=== PATIENT | female | born 1945 | race Caucasian/White ===

== ENCOUNTER 2024-06-23 15:07 | Emergency (ER) | payer MEDICARE, SELFPAY ==
[2024-06-23 15:07] VITALS: BMI 21.7
[2024-06-23 15:15] VITALS: BP 135/84
[2024-06-23 15:42] LABS: % Basophils 0.4 % (0-2); % Eosinophils 1.3 % (0-6); % Immature Granulocytes 0.4 % (0-0.5); % Lymphocytes 40.1 % (20.5-51.1); % Monocytes 8.8 % (1.7-9.3); Absolute Eosinophils 0.1 10^3/uL (0-0.7); Absolute Lymphocytes 1.9 10^3/uL (1.2-3.4); Absolute Monocytes 0.4 10^3/uL (0.1-0.6); Absolute Neutrophils 2.3 10^3/uL (1.4-6.5); Hemoglobin 13.3 g/dL (12.0-16.0); Mean Corp Hgb Conc. 34.1 g/dL (33.0-37.0); Mean Corpuscular Hgb 31.8 pg (27.0-31.0); Mean Corpuscular Volume 93.3 fL (81.0-99.0); Nucleated Red Blood Cells % 0 %; Platelet Count 188 10^3/uL (130-400); Red Blood Cell Count 4.18 10^6/uL (4.20-5.40); Red Cell Dist. Width 13.6 % (11.5-14.5); White Blood Cell Count 4.6 10^3/uL (4.8-10.8)
[2024-06-23 15:52] LABS: INR 1.96; PT 22.5 Sec (11.4-14.6)
[2024-06-23 16:30] LABS: Blood Urea Nitrogen 10 mg/dl (7-17); Calcium 8.5 mg/dl (8.4-10.2); Carbon Dioxide 29 mmol/L (22-30); Chloride 100 mmol/L (98-107); Estimated Creatinine Clearance 76 ml/min; Glucose 95 mg/dl (70-99); Sodium 135 mmol/L (135-145); eGFR > 60.00
[2024-06-23 16:35] LABS: NT-proBNP 857 pg/ml; Troponin I 0.014 ng/ml
--- NOTE | 2024-06-23 17:24 | ED.GENMED ---
History of Present Illness
General
Chief Complaint: Breathing Problem
Source: patient
Exam Limitations: none
Time Seen by Provider: 06/23/24 17:11
Nursing documentation reviewed up to this point in time: agreed with
History of Present Illness
History of Present Illness:
The patient is a 78-year-old female who reports cough, congestion, and shortness of breath for about 4 to 5 days. Patient was evaluated urgent care yesterday and tested positive for flu. She reports that she received a phone call from urgent care
encouraging her to go to the emergency department to further evaluate her aorta. Patient reports she has a known aortic aneurysm. When she explained this to urgent care, they reported that she should still be sent to the ED for a CT. Patient
reports she is able to keep fluids down and hydrate. She recently flew in from [facility] to visit her daughter. Patient denies chest pain and back pain. She denies abdominal pain.
Past History
Past History
ED Past Medical History: HTN, Hypercholesterolemia and Other (PE, valve disorder, chronic bronchitis)
ED Past Surgical History: Other
Social History
Tobacco: Other
Alcohol: Other
Drug: None
Personal: Other
Living: with family
Employment: Other
Family History
Family History: Other
Review of Systems
Review of Systems
Allergies reviewed?: Yes
All Other Systems: ROS reviewed and negative except as documented in HPI and ROS
Constitutional: Reports fatigue
EENT: Reports other (Runny nose, sinus congestion)
Respiratory: Reports cough and trouble breathing
Cardiac: Reports no symptoms
ABD/GI: Reports no symptoms
: Reports no symptoms
Musculoskeletal: Reports no symptoms
Skin: Reports no symptoms
Neurological: Reports no symptoms
Endocrine: Reports no symptoms
Hematologic/Lymphatic: Reports no symptoms
Psychiatric: Reports no symptoms
Phy Exam
Physical Exam
Physical Exam:
Physical Exam
General: no apparent distress, not acutely ill
Neck: supple. no meningeal signs. normal psoterior pharynx
Heart: s1/s2 regular rate and rhythm, murmur present.
Lungs: no acute respiratory distress. Mild rhonchi. No crackles. Patient speaks in full sentences without respiratory distress
Abdomen: normal bowel sounds. not tender. no CVAT
Neuro: alert and oriented. no focal neurological deficits
Skin: no rash
Psychiatric: well kept. interactive and cooperative
Extremities: no edema. no calf tenderness. negative homans. good distal pulses
Scores
Heart Failure Risk
Heart Failure Risk Score: Not Applicable
Course
Orders/Labs/Results
Orders:
Orders
06/23/24 15:08
Electrocardiogram (*1) Urgent
Reason for Study: Shortness of Breath
06/23/24 15:09
EKG- Treatment ONCE
CR Chest - 2 Views Urgent
Comment:
Reason For Exam: respiratory distress
06/23/24 15:27
Complete Blood Count/With Diff Urgent
Prothrombin Time Urgent
06/23/24 15:51
Basic Metabolic Panel Urgent
NT-proBNP Urgent
Troponin I Urgent
06/23/24 17:23
CT Chest/abd/pelvis Angio W/wo Urgent
Comment:
Reason For Exam: SOB
06/23/24 18:02
Troponin I Urgent
Abnormal Lab Results
06/23/24
15:27
WBC 4.6 L 10^3/uL
(4.8-10.8)
RBC 4.18 L 10^6/uL
(4.20-5.40)
MCH 31.8 H pg
(27.0-31.0)
PT 22.5 H Sec
(11.4-14.6)
06/23/24 15:27
06/23/24 15:51
Vital Signs
Initial and Last Documented VS:
Initial Vital Signs
Temp Pulse Resp BP Pulse Ox
98.1 F 61 18 135/84 98
06/23/24 15:15 06/23/24 15:15 06/23/24 15:15 06/23/24 15:15 06/23/24 15:15
Last Documented Vital Signs
Temp Pulse Resp BP Pulse Ox
98.1 F 62 18 151/85 91
06/23/24 15:15 06/23/24 20:15 06/23/24 20:15 06/23/24 20:01 06/23/24 20:15
MDM/Problems Addressed
Differential Diagnosis Includes:
Lobar pneumonia, viral pneumonia, PE, CHF, acute coronary syndrome
MDM/Problems Addressed:
Patient presents with acute shortness of breath and cough
Chronic conditions affecting care:
Given patient has history of PE, she can possibly be an increased risk of PE. Given patient has valvular heart disease, she is at increased risk of CHF
Acute Exacerbation and/or Progression of Chronic Illness:
Patient is mildly hypertensive, however, clinically does not appear to be in CHF
*Radiology
Radiology exam reviewed: preliminary read by ED provider (Chest x-ray reviewed by me. No acute disease) and radiology read reviewed
*Pulse Oximetry
Patient hypoxic: no
*EKG
Interpreted by ED Provider?: Yes
Interpretation: abnormal
Comparison EKG: no comparison EKG present
Rate: normal
Rhythm: sinus
[place]: normal axis and left axis deviation
Interval: normal interval
QRS Pattern: right bundle branch block and left vent hypertrophy
Ischemia: non-specific ST changes
*[employer] Interpretation
Rate: normal
Interpretation: normal
Rhythm: sinus
*Critical Care Note
Total Time (30-74mins, 75-104mins- exclusive of procedures): Not Applicable
Data Reviewed
Source: patient and family
Patient Management
Social determinants of health affecting care: Living situation and Strong social support
Escalation/DeEscalation of care consider admission/obs:
Patient is breathing comfortably with a normal pulse ox. CT shows no sign of aortic abnormality, PE or pneumonia. Given patient's ongoing cough productive of mucus that she reports is just getting worse for at least 5 to 6 days, with her history
of chronic lung disease, decision to treat her with antibiotics for acute bronchitis
ED Attending Note
-
Portions of this chart may have been created with voice recognition software.� Occasional wrong word or��sound alike� substitutions may have occurred due to the inherent limitations of voice recognition software.
Discharge Plan
Departure
Patient Disposition: Home (Routine Discharge)
Date of Disposition: 06/23/24
Time of Disposition: 22:00
Patient with high blood pressure during this ER visit?: Yes
Condition: Good
Covid-19: Not Applicable
Discharge Problem:
Acute bronchitis
Instructions: Acute Bronchitis, Adult (DC)
Prescriptions:
New
doxycycline hyclate 100 mg capsule
100 mg PO BID Qty: 13 0RF
Referrals:
RAMAN YIN [Other]
Interventions
Interventions:
*Risk Screen - Suicide Last Done: 06/23/24 15:15
*General Assessment Last Done: 06/23/24 21:26
*Neglect/Abuse Screening Last Done: 06/23/24 15:15
ED- Fall Risk Assessment Last Done: 06/23/24 15:15
*ED COVID-19 Vaccine History Last Done: 06/23/24 21:26
ED- Cardiac Assessment Last Done: 06/23/24 18:00
ED- Pulmonary Assessment Last Done: 06/23/24 18:00
Discharge Date and Time
Print Language: PALAUAN
[2024-06-23 19:00] LABS: Troponin I 0.017 ng/ml
[2024-06-23 19:43] VITALS: BP 160/76
[2024-06-23 20:01] VITALS: BP 151/85
[2024-06-23 22:11] VITALS: BP 114/80
[2024-06-23 23:00] VITALS: BP 190/94
[2024-06-23] MEDS: VIBRAMYCIN 100 MG PO (23:13)
== END 2024-06-23 23:14 | disposition home or self-care (01) ==
LOC: EMR 15:07
PROVIDERS: Emergency Medicine; EMERGENCY PHYSICIAN Emergency Medicine
DX: R05.9 Cough, unspecified (principal); I10 Essential (primary) hypertension; E78.00 Pure hypercholesterolemia, unspecified; J20.9 Acute bronchitis, unspecified; Z86.711 Personal history of pulmonary embolism; Z86.718 Personal history of other venous thrombosis and embolism
CPT/HCPCS: 99284; 71046; 71275; 74174; 80048; 83880; 84484; 85025; 85610; 93005; Q9967